=== PATIENT | male | born 1955 | race Caucasian/White ===

== ENCOUNTER 2017-01-27 08:00 | Day surgery (SDC) | payer OTHER ==
[~2017-01-27] VITALS: Ht 195.6 cm; Wt 131.5 kg
[~2017-01-27 08:00] MED LIST: ATORVASTATIN CA40 MG PO; B121000 MCG PO; CILOSTAZOL100 MG PO; FISH OIL1000 MG PO; GARLIC PO; GINKGO BILOB120 MG PO; HYDROCO/APAP1 TA9 PO; LISINOPRIL5 MG PO; METO25TAB PO; NASCENT IODINE PO; TURMERIC450 MG PO; [UNRECOGNIZED DRUG - OTHER] PO; [UNRECOGNIZED DRUG - OTHER] PO
[2017-01-27 10:09] VITALS: BP 97/57
== END 2017-01-27 10:41 | disposition home or self-care (01) | DRG 392 ==
LOC: ENDO 08:00
PROVIDERS: ATTEND Internal Medicine Gastroenterology
PROC: 0DB48ZX Excision of Esophagogastric Junction, Via Natural or Artificial Opening Endoscopic, Diagnostic (ICD-10-PCS; principal; 2017-01-27)
PROC: 0DB78ZX Excision of Stomach, Pylorus, Via Natural or Artificial Opening Endoscopic, Diagnostic (ICD-10-PCS; 2017-01-27)
DX: R11.2 Nausea with vomiting, unspecified (principal); I10 Essential (primary) hypertension; K21.0 Gastro-esophageal reflux disease with esophagitis; K29.50 Unspecified chronic gastritis without bleeding; R07.89 Other chest pain; E78.00 Pure hypercholesterolemia, unspecified; I73.9 Peripheral vascular disease, unspecified

== ENCOUNTER 2018-11-05 10:42 | Emergency (ER) | payer OTHER ==
[~2018-11-05] VITALS: Ht 195.6 cm; Wt 123.0 kg
[2018-11-05 11:14] LABS: HEMATOCRIT 47.7 % (39.0-50.0); HEMOGLOBIN 15.6 g/dl (14.0-18.0); IMMATURE GRANULOCYTES 1.2 % (0.0-5.0); MEAN CELL VOLUME 88.3 fL CALC (80.0-100.0); MEAN CORPUSCULAR HGB 28.9 pG CALC (26.0-32.0); MEAN CORPUSCULAR HGB CONC 32.7 g/L CALC (32.0-36.0); NEUT# 5.06 thou/uL (1.82-7.42); RED BLOOD COUNT 5.4 mill/uL (4.70-6.10); RED CELL DISTRI WIDTH 14.4 % (11.5-15.5)
[2018-11-05 11:29] LABS: ANION GAP 14 (6-22 (CALC)); BUN 10 mg/dL (8-23); BUN/CREATININE RATIO 12 (12-20 (CALC)); CARBON DIOXIDE 25 mmol/l (22-30); CHLORIDE 108 mmol/l (95-108); CREATININE 0.9 mg/dL (0.7-1.3); GFR > 60 ML/MIN (>=60 (CALC)); GFR FOR AFR.AMER. > 60 ML/MIN (>=60 (CALC)); POTASSIUM 4.3 mmol/l (3.5-5.1); SODIUM 142 mmol/l (137-146)
[2018-11-05] MEDS ORDERED: LORTAB 1010 MG PO (12:29)
[2018-11-05] MEDS ORDERED: LISINOPRIL5 MG PO (12:31)
[2018-11-05] MEDS ORDERED: PREDNISONE50 MG PO (12:41)
[2018-11-05] MEDS ORDERED: CYCLOBENZAPR5 MG PO (12:41)
[2018-11-05 14:55] VITALS: BP 150/79
== END 2018-11-05 15:30 | disposition home or self-care (01) ==
LOC: ED 10:42
PROVIDERS: Family Medicine
DX: M48.061 Spinal stenosis, lumbar region without neurogenic claudication (principal)

== ENCOUNTER 2019-02-08 15:50 | Emergency (ER) | payer OTHER ==
[~2019-02-08] VITALS: Ht 195.6 cm; Wt 120.0 kg
[~2019-02-08 15:50] MED LIST changes: +CYCLOBENZAPR5 MG PO; +LORTAB 1010 MG PO; +PREDNISONE50 MG PO
[2019-02-08] MEDS ORDERED: AMOX/K CLAV875 M1 PO (17:07)
[2019-02-08 17:26] VITALS: BP 151/88
[2019-02-09] MEDS ORDERED: LOPID600 MG PO (13:09)
[2019-02-09] MEDS ORDERED: METHOCARBAM500 MG PO (13:10)
[2019-02-09] MEDS ORDERED: BACLOFEN10 MG PO (13:11)
[2019-02-09] MEDS ORDERED: GABAPENTIN800 MG PO (13:11)
== END 2019-02-08 17:26 | disposition home or self-care (01) ==
LOC: ED 15:50
DX: S51.852A Open bite of left forearm, initial encounter (principal); W54.0XXA Bitten by dog, initial encounter; Y93.89 Activity, other specified; Y92.009 Unspecified place in unspecified non-institutional (private) residence as the place of occurrence of the external cause

== ENCOUNTER 2019-02-09 12:41 | Emergency (ER) | payer OTHER ==
[~2019-02-09] VITALS: Ht 195.6 cm; Wt 120.9 kg
[~2019-02-09 12:41] MED LIST changes: +AMOX/K CLAV875 M1 PO
[2019-02-09 13:06] VITALS: BP 131/77
[2019-02-09] MEDS ORDERED: LOPID600 MG PO (13:09)
[2019-02-09] MEDS ORDERED: METHOCARBAM500 MG PO (13:10)
[2019-02-09] MEDS ORDERED: GABAPENTIN800 MG PO (13:11)
[2019-02-09] MEDS ORDERED: BACLOFEN10 MG PO (13:11)
== END 2019-02-09 13:06 | disposition home or self-care (01) ==
LOC: ED 12:41
DX: S51.852D Open bite of left forearm, subsequent encounter (principal); I10 Essential (primary) hypertension; I73.9 Peripheral vascular disease, unspecified; W54.0XXD Bitten by dog, subsequent encounter

== ENCOUNTER 2019-02-27 17:24 | Emergency (ER) | payer OTHER ==
[~2019-02-27] VITALS: Ht 195.6 cm; Wt 150.0 kg
[~2019-02-27 17:24] MED LIST changes: +BACLOFEN10 MG PO; +GABAPENTIN800 MG PO; +LOPID600 MG PO; +METHOCARBAM500 MG PO
[2019-02-27 17:40] VITALS: BP 132/81
== END 2019-02-27 17:40 | disposition home or self-care (01) ==
LOC: ED 17:24
DX: S51.852D Open bite of left forearm, subsequent encounter (principal); W54.0XXD Bitten by dog, subsequent encounter

== ENCOUNTER 2019-07-08 06:01 | Emergency (ER) | payer OTHER ==
[~2019-07-08] VITALS: Ht 195.6 cm; Wt 120.0 kg
[2019-07-08] MEDS ORDERED: AMOX/K CLAV875 M1 PO (07:00)
[2019-07-08 07:15] VITALS: BP 146/85
== END 2019-07-08 07:15 | disposition home or self-care (01) ==
LOC: ED 06:01
DX: S51.811A Laceration without foreign body of right forearm, initial encounter (principal); I10 Essential (primary) hypertension; X58.XXXA Exposure to other specified factors, initial encounter

== ENCOUNTER 2019-08-26 | Emergency (ER) | payer OTHER ==
[2019-08-26] MEDS ORDERED: AMOX/K CLAV875 M1 PO (20:56)
== END 2019-08-26 21:15 | disposition home or self-care (01) ==
DX: S51.851A Open bite of right forearm, initial encounter (principal); L08.9 Local infection of the skin and subcutaneous tissue, unspecified; I10 Essential (primary) hypertension; I73.9 Peripheral vascular disease, unspecified; B95.62 Methicillin resistant Staphylococcus aureus infection as the cause of diseases classified elsewhere; W54.0XXA Bitten by dog, initial encounter

== ENCOUNTER 2024-02-23 14:24 | Emergency (ER) | payer MEDICARE, MEDICAID ==
[~2024-02-23] VITALS: Ht 195.6 cm; Wt 108.0 kg
[2024-02-23] VITALS (15 sets, daily range): BP systolic 118–166; BP diastolic 78–102
[~2024-02-23 14:24] MED LIST changes: +ASPIRIN LOW DOS81 M2 PO; +ATORVASTATIN CA80 MG PO; +BACTRIM DS1 TAB OR; +CARAFATE1 GM PO; +CENTRUM SILVER1 TAB PO; +CEPHALEXIN500 MG PO; +CRESTOR10 MG OR; +CRESTOR20 MG PO; +DIABETA2.5 MG PO; +DICLOFENAC75 MG PO; +DOXYCYC MONO100 M1 OR; +FLEXERIL PO; +HYDROCO/APAP1 TA1 PO; +IBUPROFEN200 MG OR; +KEFLEX500 MG OR; +LIPITOR40 MG PO; +LISINOPRIL2.5 MG PO; +LORTAB 5 OR; +LORTAB 5 PO; +LORTAB 7.5 OR; +NAPROSYN500 MG OR; +NAPROSYN500 MG PO; +NIASPAN500 MG OR; +NO MEDS; +OMEGA-3 FIS1 PO; +PANTOPRAZOLE SO40 M1 PO; +PERCOCET 5/325M1 TAB OR; +PLETAL100 MG PO; +PRILOSEC40 MG PO; +TOPROL XL25 M1 PO; +TRAMADOL HCL50 MG OR; +ZESTRIL5 M1 PO
[2024-02-23] MEDS ORDERED: ASPIRIN 81 MG/TAB PO ONE (19:00)
[2024-02-23] MEDS ORDERED: Heparin SODIUM (Porcine) 5,000 UNITS/ML SDV IV ONE (20:10)
[2024-02-23] MEDS ORDERED: Heparin SODIUM (Porcine) 500 ML IV ONE (20:15)
[2024-02-23] MEDS ORDERED: MORPHINE SULFATE 4 MG/ML VIAL IV ONE (20:40)
[2024-02-23] MEDS ORDERED: ONDANSETRON HCl 4 MG/2 ML SDV IV ONE (20:40)
[2024-02-23 20:41] LABS: BASO% 0.5 % (0-3); EOS% 6.4 % (0-8); HEMATOCRIT 47.6 % (39.0-50.0); HEMOGLOBIN 15.2 g/dl (14.0-18.0); IMMATURE GRANULOCYTES 0.3 % (0.0-5.0); LYMPH% 30.2 % (15-41); MEAN CELL VOLUME 94.1 fL CALC (80.0-100.0); MEAN CORPUSCULAR HGB CONC 31.9 g/dL CAL (32.0-36.0); MONO% 6.6 % (2-13); NEUT# 5.82 thou/uL (1.82-7.42); RED BLOOD COUNT 5.06 mill/uL (4.70-6.10); RED CELL DISTRI WIDTH 14.1 % (11.5-15.5)
[2024-02-23 21:00] LABS: ALBUMIN 4.7 g/dL (3.2-5.0); BILIRUBIN, TOTAL 1.5 mg/dL (0.2-1.3); CREATININE 1.1 mg/dL (0.7-1.3); TOTAL PROTEIN 8.4 g/dL (6.3-8.2)
[2024-02-23 21:03] LABS: ACT PARTIAL THROMBO TIME 27.1 SECONDS (20.0-32.5)
[2024-02-23 21:05] LABS: PROTHROMBIN TIME 9.9 SECONDS (9.0-12.5)
== END 2024-02-23 23:25 | disposition short-term general hospital (02) ==
LOC: ED 16:16
PROVIDERS: Nurse Practitioner
DX: I74.3 Embolism and thrombosis of arteries of the lower extremities (principal); I72.4 Aneurysm of artery of lower extremity; I10 Essential (primary) hypertension
CPT/HCPCS: J1644